=== PATIENT | female | born 1970 | race Caucasian/White ===

== ENCOUNTER 2022-12-30 19:25 | Emergency (ER) | payer OTHER ==
[~2022-12-30] VITALS: Ht 170.2 cm; Wt 71.7 kg
[~2022-12-30 19:25] MED LIST: CITALOPRAM HBR20 MG PO; CLONAZEPAM1 MG PO; ZYRTEC10 MG PO
[2022-12-30] MEDS ORDERED: HYDROCODON-ACE1 EA10 PO (22:26)
[2022-12-30 23:20] VITALS: BP 105/74
== END 2022-12-30 23:20 | disposition home or self-care (01) ==
LOC: ED 19:25
DX: S22.088A Other fracture of T11-T12 vertebra, initial encounter for closed fracture (principal); S32.2XXA Fracture of coccyx, initial encounter for closed fracture; W01.0XXA Fall on same level from slipping, tripping and stumbling without subsequent striking against object, initial encounter; Z79.899 Other long term (current) drug therapy
CPT/HCPCS: 72100; 72192; 72220; 73502; A9270; J1170; J1885

== ENCOUNTER 2024-12-12 17:09 | Emergency (ER) | payer OTHER ==
[~2024-12-12] VITALS: Ht 170.2 cm; Wt 73.0 kg
--- OUTSIDE RECORDS SUMMARY | ~2024-12-12 | XMS | Continuity of Care Document ---
Demographics + + + | Address | [address] | | | [place] [address] | + + + | Preferred Language | Unknown | + + + | Marital Status | | + + + | Synagogue Affiliation | Unknown | + + + | Race | White | + + + | Ethnic Group | Not or | + + + Author + + + | Author | [facility] | + + + | Organization | [facility] | + + + | Address | [address] | | | [place] [address] | + + + | Phone | | + + + Care Team Providers + + + + | Care Sail Repairer Name | Role | Phone | + + + + Unavailable | Unavailable | + + + + Allergies No information. Encounters No information. Functional Status No information. Immunizations No information. Medications + + + + | date | description | facility | + + + + | (no date) | CETIRIZINE HCL | [facility] | | | | [facility] | + + + + | (no date) | CLONAZEPAM | [facility] | | | | [facility] | + + + + | (no date) | CITALOPRAM HYDROBROMIDE | [facility] | | | | [facility] | + + + + Problems No information. Procedures No information. Results/Labs No information. Social History +--------+ + + | date | description | facility | +--------+ + + Vital Signs No information."
[~2024-12-12 17:09] MED LIST changes: +HYDROCODON-ACE1 EA10 PO
[2024-12-12] MEDS ORDERED: DIPHTH,PERTUSS(ACELL),TET VAC 0.5 ML SYRINGE IM ONE (17:45)
[2024-12-12 18:03] VITALS: BP 137/99
== END 2024-12-12 18:03 | disposition home or self-care (01) ==
LOC: ED 17:09
DX: S61.411A Laceration without foreign body of right hand, initial encounter (principal); S61.214A Laceration without foreign body of right ring finger without damage to nail, initial encounter; S61.216A Laceration without foreign body of right little finger without damage to nail, initial encounter; W01.118A Fall on same level from slipping, tripping and stumbling with subsequent striking against other sharp object, initial encounter; Z79.899 Other long term (current) drug therapy; Z23 Encounter for immunization
CPT/HCPCS: 90471; 90715; 99282-25